=== PATIENT | male | born 1950 | race Hispanic/Latino ===

== ENCOUNTER 2021-07-24 09:25 | Inpatient (IN) | payer SELFPAY ==
[2021-07-24 10:25] LABS: #Monocytes 0.6 10x3/uL (0.0-1.1); #Neutrophils 4.5 10x3/uL (1.5-8.4); %Basophils 0.6 % (0.0-2.0); %Eosinophils 0.2 % (0.0-6.0); %Lymphocytes 17.7 % (18.0-47.0); %Monocytes 9.5 % (0.0-10.0); %Neutrophils 71.7 % (40.0-75.0); Hemoglobin 14.1 g/dL (13.5-17.5); Mean Corpuscular HGB CONC 32.4 g/dL (32.0-36.0); Mean Corpuscular Hemoglobin 26.8 pg (27.0-33.0); Mean Corpuscular Volume 82.5 fl (81.2-95.1); Mean Platelet Volume 10.4 fl (7.4-10.4); Platelet Count 223 10x3/uL (150-450); RBC Distribution Width 17.3 % (11.5-14.5); Red Blood Cell (RBC) Count 5.27 10x6/uL (4.32-5.72); White Blood Cell (WBC) Count 6.2 10x3/uL (3.5-10.5)
[2021-07-24] MEDS ORDERED: Gadobenate Dimeglumine 529 MG/1 ML (20ML VIAL) ONE (10:35)
[2021-07-24 10:38] LABS: ALT (SGPT) 135 U/L (8-55); AST (SGOT) 141 U/L (5-34); Albumin 4.2 g/dL (3.4-4.8); Alkaline Phosphatase 110 U/L (40-110); Anion Gap 19 mmol/L (10-20); BUN (Urea Nitrogen) 59 mg/dL (8.4-25.7); Bilirubin, Total 0.8 mg/dL (0.2-1.2); Calc. Creatinine Clearance 0 mL/min (70-130); Carbon Dioxide 19 mmol/L (23-31); Chloride 103 mmol/L (98-107); Glucose 80 mg/dL (83-110); Lipase 77 U/L (8-78); Potassium 4.7 mmol/L (3.5-5.1); Protein, Total 8.2 g/dL (5.8-8.1); Sodium 136 mmol/L (136-145)
[2021-07-24] MEDS ORDERED: Senokot S 8.6-50 MG TAB PO PRN (13:53)
[2021-07-24] MEDS ORDERED: Bisacodyl 5 MG TAB PO PRN (13:53)
[2021-07-24] MEDS ORDERED: Acetaminophen 325 MG TAB PO PRN (13:53)
[2021-07-24] MEDS ORDERED: Sodium Chloride 0.9% 1,000 ML IV SCH (14:45)
[2021-07-24 14:57] VITALS: BMI 24.3
[2021-07-24] MEDS: Sodium Chloride 0.9% 1,000 ML IV SCH (16:06)
[2021-07-24 18:25] LABS: Bilirubin Neg (Negative); Blood, Urine 10 (Negative); Clarity Clear (Clear); Glucose, Urine (Dipstick) Normal (Negative); Ketone, Urine 5 mg/dL (Negative); Leukocyte Negative (Negative); Nitrite Negative (Negative); Protein, Urine (Dipstick) 30 mg/dl (Neg-Trace); Specific Gravity, Urine 1.015 (1.002-1.036); Urobilinogen Normal mg/dL (Less than 2)
[2021-07-24 18:37] LABS: RBC/HPF 0-3 HPF (0-3); Squamous Epithelial 0-3 HPF (0-3); WBC/HPF 0-3 HPF (0-3)
[2021-07-24 18:38] LABS: Bacteria/HPF 1+ HPF (None Seen)
[2021-07-24] MEDS ORDERED: Amlodipine 10 MG TAB PO SCH (22:15)
[2021-07-25] MEDS: Sodium Chloride 0.9% 1,000 ML IV SCH ×4 (00:06→23:27)
[2021-07-25 04:06] LABS: #Eosinphils 0.1 10x3/uL (0.0-0.5); #Monocytes 0.6 10x3/uL (0.0-1.1); #Neutrophils 3.5 10x3/uL (1.5-8.4); %Basophils 0.6 % (0.0-2.0); %Eosinophils 0.9 % (0.0-6.0); %Lymphocytes 20.3 % (18.0-47.0); %Monocytes 11.4 % (0.0-10.0); %Neutrophils 66.6 % (40.0-75.0); Hemoglobin 13.5 g/dL (13.5-17.5); Mean Corpuscular HGB CONC 32.8 g/dL (32.0-36.0); Mean Corpuscular Hemoglobin 26.8 pg (27.0-33.0); Mean Corpuscular Volume 81.9 fl (81.2-95.1); Mean Platelet Volume 9.6 fl (7.4-10.4); Platelet Count 179 10x3/uL (150-450); RBC Distribution Width 17.6 % (11.5-14.5); Red Blood Cell (RBC) Count 5.03 10x6/uL (4.32-5.72); White Blood Cell (WBC) Count 5.3 10x3/uL (3.5-10.5)
[2021-07-25 04:24] LABS: ALT (SGPT) 107 U/L (8-55); AST (SGOT) 122 U/L (5-34); Albumin 3.3 g/dL (3.4-4.8); Alkaline Phosphatase 102 U/L (40-110); Anion Gap 15 mmol/L (10-20); BUN (Urea Nitrogen) 42 mg/dL (8.4-25.7); Bilirubin, Total 0.6 mg/dL (0.2-1.2); Calc. Creatinine Clearance 46 mL/min (70-130); Calcium 8.7 mg/dL (7.8-10.44); Carbon Dioxide 21 mmol/L (23-31); Chloride 110 mmol/L (98-107); Globulin 3.3 g/dL (2.4-3.5); Glucose 86 mg/dL (83-110); Potassium 4.9 mmol/L (3.5-5.1); Protein, Total 6.6 g/dL (5.8-8.1); Sodium 141 mmol/L (136-145)
[2021-07-25 13:13] LABS: HBCM Index 0.07 S/CO (0-0.79); HBSAg Index 0.35 S/CO (0-0.99); Hep A IgM AB Non-Reactive (NonReactive); Hep A IgM S/CO 0.32 S/CO (0-0.79); Hep B Surf Ag Non-Reactive S/CO (NonReactive); Hep C IgG Ab Non-Reactive (NonReactive); Hep C Index 0.08 S/CO (0-0.79); Hepatitis B Core IgM Abs Non-Reactive (NonReactive)
[2021-07-25] MEDS ORDERED: GoLYTELY 4,000 ml Bottle PO SCH (17:00)
[2021-07-25] MEDS: Amlodipine 10 MG TAB PO SCH (20:16)
[2021-07-26 04:38] LABS: #Eosinphils 0.1 10x3/uL (0.0-0.5); #Monocytes 0.5 10x3/uL (0.0-1.1); #Neutrophils 3.8 10x3/uL (1.5-8.4); %Basophils 0.4 % (0.0-2.0); %Eosinophils 0.9 % (0.0-6.0); %Lymphocytes 20.3 % (18.0-47.0); %Monocytes 9.5 % (0.0-10.0); %Neutrophils 68.7 % (40.0-75.0); Hemoglobin 13.6 g/dL (13.5-17.5); Mean Corpuscular HGB CONC 32.5 g/dL (32.0-36.0); Mean Corpuscular Hemoglobin 26.8 pg (27.0-33.0); Mean Corpuscular Volume 82.4 fl (81.2-95.1); Platelet Count 187 10x3/uL (150-450); RBC Distribution Width 17.2 % (11.5-14.5); Red Blood Cell (RBC) Count 5.07 10x6/uL (4.32-5.72); White Blood Cell (WBC) Count 5.5 10x3/uL (3.5-10.5)
[2021-07-26 05:08] LABS: Anion Gap 16 mmol/L (10-20); BUN (Urea Nitrogen) 16 mg/dL (8.4-25.7); Calc. Creatinine Clearance 74 mL/min (70-130); Calcium 8.5 mg/dL (7.8-10.44); Carbon Dioxide 19 mmol/L (23-31); Chloride 109 mmol/L (98-107); Glucose 69 mg/dL (83-110); Potassium 4.9 mmol/L (3.5-5.1); Sodium 139 mmol/L (136-145)
[2021-07-26] MEDS: Sodium Chloride 0.9% 1,000 ML IV SCH ×3 (06:31→23:19)
[2021-07-26] MEDS ORDERED: Lidocaine 1% PF 5 ML VIAL ONE (13:40)
[2021-07-26] MEDS ORDERED: PROPOFOL 20 ML ONE ×2 (13:40→13:48)
[2021-07-26] MEDS ORDERED: PHENYLEPHRINE-NS 100 MCG/ML 10 ML SYRINGE ONE (13:50)
[2021-07-26] MEDS: Amlodipine 10 MG TAB PO SCH (20:59)
[2021-07-27] MEDS: Sodium Chloride 0.9% 1,000 ML IV SCH ×2 (07:10→17:09)
[2021-07-27] MEDS: Amlodipine 10 MG TAB PO SCH (21:07)
[2021-07-28 05:13] LABS: ALT (SGPT) 116 U/L (8-55); AST (SGOT) 139 U/L (5-34); Albumin 3.4 g/dL (3.4-4.8); Alkaline Phosphatase 100 U/L (40-110); Anion Gap 16 mmol/L (10-20); BUN (Urea Nitrogen) 11 mg/dL (8.4-25.7); Bilirubin, Total 0.4 mg/dL (0.2-1.2); Calc. Creatinine Clearance 81 mL/min (70-130); Calcium 8.8 mg/dL (7.8-10.44); Carbon Dioxide 21 mmol/L (23-31); Chloride 105 mmol/L (98-107); Globulin 3.4 g/dL (2.4-3.5); Glucose 91 mg/dL (83-110); Protein, Total 6.8 g/dL (5.8-8.1); Sodium 138 mmol/L (136-145)
[2021-07-28 06:30] LABS: INR-International Normal Ratio 1.1; Prothrombin Time 11.9 sec (9.5-12.1)
[2021-07-28] MEDS: traMADol HCl 50 MG TAB PO PRN (17:28)
[2021-07-28] MEDS: Amlodipine 10 MG TAB PO SCH (20:53)
[2021-07-29] MEDS ORDERED: Lidocaine 1% PF 5 ML VIAL ONE (08:52)
[2021-07-29] MEDS ORDERED: Sodium Bicarbonate 2.5 MEQ/5 ML VIAL ONE (08:52)
[2021-07-29] MEDS: Amlodipine 10 MG TAB PO SCH (20:44)
[2021-07-29] MEDS: Morphine 2 MG/ML VIAL SLOW IVP PRN (20:49)
[2021-07-30] MEDS: traMADol HCl 50 MG TAB PO PRN ×2 (03:51→22:08)
[2021-07-30 03:59] LABS: #Eosinphils 0.1 10x3/uL (0.0-0.5); #Monocytes 0.4 10x3/uL (0.0-1.1); #Neutrophils 3.7 10x3/uL (1.5-8.4); %Basophils 0.6 % (0.0-2.0); %Lymphocytes 19.2 % (18.0-47.0); %Monocytes 7.9 % (0.0-10.0); %Neutrophils 71.1 % (40.0-75.0); Hemoglobin 14.7 g/dL (13.5-17.5); Mean Corpuscular HGB CONC 32.5 g/dL (32.0-36.0); Mean Corpuscular Hemoglobin 26.9 pg (27.0-33.0); Mean Corpuscular Volume 82.6 fl (81.2-95.1); Mean Platelet Volume 10.7 fl (7.4-10.4); Platelet Count 180 10x3/uL (150-450); RBC Distribution Width 16.7 % (11.5-14.5); Red Blood Cell (RBC) Count 5.47 10x6/uL (4.32-5.72); White Blood Cell (WBC) Count 5.2 10x3/uL (3.5-10.5)
[2021-07-30 04:21] LABS: ALT (SGPT) 509 U/L (8-55); AST (SGOT) 748 U/L (5-34); Albumin 3.5 g/dL (3.4-4.8); Alkaline Phosphatase 263 U/L (40-110); Anion Gap 17 mmol/L (10-20); BUN (Urea Nitrogen) 13 mg/dL (8.4-25.7); Bilirubin, Total 0.8 mg/dL (0.2-1.2); Calc. Creatinine Clearance 74 mL/min (70-130); Calcium 9.3 mg/dL (7.8-10.44); Carbon Dioxide 25 mmol/L (23-31); Chloride 99 mmol/L (98-107); Globulin 3.6 g/dL (2.4-3.5); Glucose 83 mg/dL (83-110); Potassium 4.7 mmol/L (3.5-5.1); Protein, Total 7.1 g/dL (5.8-8.1); Sodium 136 mmol/L (136-145)
[2021-07-30] MEDS: Amlodipine 10 MG TAB PO SCH (20:40)
[2021-07-31 04:49] LABS: ALT (SGPT) 540 U/L (8-55); AST (SGOT) 480 U/L (5-34); Albumin 3.7 g/dL (3.4-4.8); Alkaline Phosphatase 301 U/L (40-110); Anion Gap 18 mmol/L (10-20); BUN (Urea Nitrogen) 15 mg/dL (8.4-25.7); Bilirubin, Total 0.9 mg/dL (0.2-1.2); Calc. Creatinine Clearance 77 mL/min (70-130); Calcium 9.5 mg/dL (7.8-10.44); Carbon Dioxide 23 mmol/L (23-31); Chloride 99 mmol/L (98-107); Globulin 3.7 g/dL (2.4-3.5); Glucose 92 mg/dL (83-110); Potassium 5.1 mmol/L (3.5-5.1); Protein, Total 7.4 g/dL (5.8-8.1); Sodium 135 mmol/L (136-145)
[2021-07-31] MEDS ORDERED: hydrALAZINE 20 MG/ML VIAL SLOW IVP PRN (15:24)
[2021-07-31] MEDS: Amlodipine 10 MG TAB PO SCH (20:35)
[2021-08-01 04:58] LABS: #Monocytes 0.6 10x3/uL (0.0-1.1); #Neutrophils 5.4 10x3/uL (1.5-8.4); %Basophils 0.3 % (0.0-2.0); %Eosinophils 0.3 % (0.0-6.0); %Lymphocytes 16.6 % (18.0-47.0); %Monocytes 7.7 % (0.0-10.0); %Neutrophils 74.8 % (40.0-75.0); Hemoglobin 15.1 g/dL (13.5-17.5); Mean Corpuscular Hemoglobin 26.8 pg (27.0-33.0); Mean Platelet Volume 11.1 fl (7.4-10.4); Platelet Count 218 10x3/uL (150-450); RBC Distribution Width 17.6 % (11.5-14.5); Red Blood Cell (RBC) Count 5.64 10x6/uL (4.32-5.72); White Blood Cell (WBC) Count 7.2 10x3/uL (3.5-10.5)
[2021-08-01 05:10] LABS: ALT (SGPT) 410 U/L (8-55); AST (SGOT) 244 U/L (5-34); Alkaline Phosphatase 282 U/L (40-110); Bilirubin, Direct 0.4 mg/dL (0.1-0.3); Bilirubin, Total 0.9 mg/dL (0.2-1.2)
[2021-08-01] MEDS: Losartan Potassium 50 MG TAB PO SCH (09:02)
[2021-08-01] MEDS ORDERED: Metoprolol Tartrate 50 MG TAB PO SCH (10:30)
[2021-08-01] MEDS: Metoprolol Tartrate 25 MG TAB PO SCH (21:10)
[2021-08-01] MEDS: Amlodipine 10 MG TAB PO SCH (21:11)
[2021-08-02] MEDS: Losartan Potassium 50 MG TAB PO SCH (08:42)
[2021-08-02] MEDS: Metoprolol Tartrate 25 MG TAB PO SCH ×2 (08:42→21:09)
[2021-08-02] MEDS: Ondansetron ODT 4 MG TAB PO PRN ×2 (12:16→21:11)
[2021-08-02] MEDS: Ondansetron PF 4 MG/2 ML Vial IVP PRN ×2 (18:40→23:50)
[2021-08-02] MEDS: Morphine 2 MG/ML VIAL SLOW IVP PRN (19:40)
[2021-08-02] MEDS: Amlodipine 10 MG TAB PO SCH (21:08)
[2021-08-02] MEDS: traMADol HCl 50 MG TAB PO PRN (23:29)
[2021-08-03 04:45] LABS: #Monocytes 0.6 10x3/uL (0.0-1.1); #Neutrophils 4.9 10x3/uL (1.5-8.4); %Basophils 0.4 % (0.0-2.0); %Eosinophils 0.1 % (0.0-6.0); %Neutrophils 71.1 % (40.0-75.0); Hemoglobin 14.6 g/dL (13.5-17.5); Mean Corpuscular HGB CONC 32.2 g/dL (32.0-36.0); Mean Corpuscular Hemoglobin 26.5 pg (27.0-33.0); Mean Corpuscular Volume 82.5 fl (81.2-95.1); Mean Platelet Volume 10.5 fl (7.4-10.4); Platelet Count 241 10x3/uL (150-450); RBC Distribution Width 17.1 % (11.5-14.5); White Blood Cell (WBC) Count 6.9 10x3/uL (3.5-10.5)
[2021-08-03 05:15] LABS: ALT (SGPT) 256 U/L (8-55); AST (SGOT) 214 U/L (5-34); Albumin 3.5 g/dL (3.4-4.8); Alkaline Phosphatase 220 U/L (40-110); Anion Gap 17 mmol/L (10-20); BUN (Urea Nitrogen) 40 mg/dL (8.4-25.7); Bilirubin, Total 0.9 mg/dL (0.2-1.2); Calc. Creatinine Clearance 48 mL/min (70-130); Calcium 9.3 mg/dL (7.8-10.44); Carbon Dioxide 24 mmol/L (23-31); Chloride 98 mmol/L (98-107); Globulin 3.5 g/dL (2.4-3.5); Glucose 73 mg/dL (83-110); Potassium 4.6 mmol/L (3.5-5.1); Sodium 134 mmol/L (136-145)
[2021-08-03] MEDS: Ondansetron ODT 4 MG TAB PO PRN (08:52)
[2021-08-03] MEDS: Metoprolol Tartrate 25 MG TAB PO SCH ×2 (08:53→21:26)
[2021-08-03] MEDS: Losartan Potassium 50 MG TAB PO SCH (08:53)
[2021-08-03] MEDS: Ondansetron PF 4 MG/2 ML Vial IVP PRN ×2 (13:28→20:58)
[2021-08-03] MEDS: Amlodipine 10 MG TAB PO SCH (21:27)
[2021-08-04] MEDS: Ondansetron PF 4 MG/2 ML Vial IVP PRN (07:47)
[2021-08-04] MEDS: Metoprolol Tartrate 25 MG TAB PO SCH ×2 (09:53→20:34)
[2021-08-04] MEDS: Losartan Potassium 50 MG TAB PO SCH (09:53)
[2021-08-04] MEDS: traMADol HCl 50 MG TAB PO PRN ×2 (11:40→18:09)
[2021-08-04] MEDS: Morphine 2 MG/ML VIAL SLOW IVP PRN (17:20)
[2021-08-04] MEDS ORDERED: HYDROcodone/Acetaminophen 5/325 mg Tablet PO PRN (18:22)
[2021-08-04] MEDS: Amlodipine 10 MG TAB PO SCH (20:34)
[2021-08-04] MEDS: Morphine 4 MG/ML VIAL SLOW IVP PRN (20:36)
[2021-08-05] MEDS: Losartan Potassium 50 MG TAB PO SCH (08:28)
[2021-08-05] MEDS: Metoprolol Tartrate 25 MG TAB PO SCH ×2 (08:28→22:30)
[2021-08-05] MEDS: Morphine 4 MG/ML VIAL SLOW IVP PRN ×2 (08:29→22:09)
[2021-08-05] MEDS: Amlodipine 10 MG TAB PO SCH (19:54)
[2021-08-06] MEDS: Metoprolol Tartrate 25 MG TAB PO SCH ×2 (07:53→21:20)
[2021-08-06] MEDS: Losartan Potassium 50 MG TAB PO SCH (07:53)
[2021-08-06] MEDS: Amlodipine 10 MG TAB PO SCH (21:20)
[2021-08-07 05:29] LABS: #Eosinphils 0.1 10x3/uL (0.0-0.5); #Monocytes 0.5 10x3/uL (0.0-1.1); #Neutrophils 4.6 10x3/uL (1.5-8.4); %Basophils 0.7 % (0.0-2.0); %Eosinophils 0.8 % (0.0-6.0); %Lymphocytes 14.1 % (18.0-47.0); %Monocytes 8.8 % (0.0-10.0); %Neutrophils 75.3 % (40.0-75.0); Hemoglobin 15.8 g/dL (13.5-17.5); Mean Corpuscular HGB CONC 32.7 g/dL (32.0-36.0); Mean Corpuscular Hemoglobin 26.6 pg (27.0-33.0); Mean Corpuscular Volume 81.2 fl (81.2-95.1); Mean Platelet Volume 10.5 fl (7.4-10.4); Platelet Count 218 10x3/uL (150-450); RBC Distribution Width 18.6 % (11.5-14.5); Red Blood Cell (RBC) Count 5.95 10x6/uL (4.32-5.72); White Blood Cell (WBC) Count 6.1 10x3/uL (3.5-10.5)
[2021-08-07 05:40] LABS: INR-International Normal Ratio 1.1; Prothrombin Time 11.5 sec (9.5-12.1)
[2021-08-07 06:14] LABS: ALT (SGPT) 308 U/L (8-55); AST (SGOT) 286 U/L (5-34); Albumin 3.6 g/dL (3.4-4.8); Alkaline Phosphatase 306 U/L (40-110); Bilirubin, Direct 0.4 mg/dL (0.1-0.3); Bilirubin, Total 0.6 mg/dL (0.2-1.2); Protein, Total 7.3 g/dL (5.8-8.1)
[2021-08-07 09:31] VITALS: BP 116/55; TEMP 97.1
[2021-08-07] MEDS: Losartan Potassium 50 MG TAB PO SCH (10:13)
[2021-08-07] MEDS: Metoprolol Tartrate 25 MG TAB PO SCH (10:15)
[2021-08-09 15:16] LABS: Smooth Muscle Total ABS 6 Units (0-19)
[2021-08-09 16:25] LABS: ANA Symphony (Qualitative) Negative (Negative); ANA Symphony (Quantitative) 0.4 Ratio (< 0.7 Negative); EliA Vaculitis New Method **** NEW METHOD ****; Mitochondrial Ab 3.1 U/mL (<4 Negative); dsDNA IgG Antibody 1.4 IU/mL (<10 Negative)
[2021-08-09 22:13] LABS: Hep C PCR-Quant HCV Not Detected IU/mL (.)
[2021-08-09 22:37] LABS: HBV as IU/mL HBV DNA not detected IU/mL (.)
== END 2021-08-07 13:00 | disposition home or self-care (01) | DRG 436 ==
LOC: CSHERS 09:25 → CSHTELE 13:32
PROVIDERS: ADMIT Hospitalist; ATTEND Internal Medicine
PROC: 0DJ08ZZ Inspection of Upper Intestinal Tract, Via Natural or Artificial Opening Endoscopic (ICD-10-PCS; 2021-07-26)
PROC: 0DJD8ZZ Inspection of Lower Intestinal Tract, Via Natural or Artificial Opening Endoscopic (ICD-10-PCS; 2021-07-26)
PROC: 0FB23ZX Excision of Left Lobe Liver, Percutaneous Approach, Diagnostic (ICD-10-PCS; principal; 2021-07-29)
DX: C22.0 Liver cell carcinoma (principal); N17.9 Acute kidney failure, unspecified; K62.5 Hemorrhage of anus and rectum; C78.5 Secondary malignant neoplasm of large intestine and rectum; B17.9 Acute viral hepatitis, unspecified; C20 Malignant neoplasm of rectum; I10 Essential (primary) hypertension; R63.4 Abnormal weight loss; K64.9 Unspecified hemorrhoids; R79.89 Other specified abnormal findings of blood chemistry; R74.01 Elevation of levels of liver transaminase levels; K64.8 Other hemorrhoids; R00.0 Tachycardia, unspecified; R16.0 Hepatomegaly, not elsewhere classified; Z20.822 Contact with and (suspected) exposure to COVID-19; Z68.24 Body mass index [BMI] 24.0-24.9, adult; Z90.49 Acquired absence of other specified parts of digestive tract
CPT/HCPCS: 36415; 47000; 74176; 74183; 80048; 80053; 80074; 80076; 81001; 82105; 82378; 82390; 82728; 83516; 83550; 83690; 83935; 84300; 85025; 85610; 86015; 86038; 86225; 87517; 87522; 88307; 88313; 88341; 88342; 88365; A9577; J2270; J2405; J2704; J7050; Q0162; U0003; U0005